=== PATIENT | female | born 1990 | race Caucasian/White ===

== ENCOUNTER 2019-04-07 22:03 | Emergency (ER) | payer MEDICAID ==
[~2019-04-07] VITALS: Ht 127 cm; Wt 133.4 kg
[2019-04-07 22:07] VITALS: BP_SYST 142
--- NOTE | 2019-04-07 22:10 | NUR ---
Patient triaged and placed in waiting room. VSS and patient appears in no acute distress at this time. Accompanied by sister, awaiting available bed, and MD notified of need for MSE.
--- NOTE | 2019-04-08 00:15 | NUR ---
Patient to ER bed 2 to gown for evaluation. Side rails up.
--- NOTE | 2019-04-08 00:25 | NUR ---
Pt presents to ER with mother with c/o abdominal pain, nausea, vomiting, and intermittent fevers. Pt states she got an appendectomy 03/30/2019 at [facility]. Pt states immediately after surgery, she was in pain and vomiting. Pt states she stayed in hospital until 04/05/2019. Pt states pain is still present and "can not keep anything down." Pt states pain is 8/10 and pain is located in RUQ. Pt states sutures are not painful. Pt states "fevers are off and on." Will continue to monitor.
[2019-04-08] MEDS ORDERED: NACL 0.9% 1,000 ML IV ONE (00:49)
--- NOTE | 2019-04-08 00:50 | NUR ---
# 20 gauge angiocath placed to L AC. Use of asceptic technique. Opsite placed over site. Blood return noted. Blood for lab drawn from site. Flushed with 10 cc of normal saline. No evidence of infiltration noted. Patient tolerated well.
[2019-04-08] MEDS ORDERED: ONDANSETRON HCL 4 MG/2 ML VIAL IVP ONE ×2 (01:00→03:30)
[2019-04-08] MEDS ORDERED: KETOROLAC TROMETHAMINE 30 MG VIAL IVP ONE (01:00)
--- NOTE | 2019-04-08 01:15 | NUR ---
Pt medicated per MD orders. Pt tolerated well. Will continue to monitor.
[2019-04-08 01:17] LABS: WHITE BLOOD COUNT (AUTO) 13.9 K/uL (4.8-10.8)
[2019-04-08 01:18] LABS: BASOPHILS # (AUTO) 0.1 K/uL (0.0-0.2); BASOPHILS % (AUTO) 0.5 % (0.0-2.0); EOSINOPHILS # (AUTO) 0.2 K/uL (0.0-0.4); EOSINOPHILS % (AUTO) 1.6 % (0.0-4.0); HEMATOCRIT 34.3 % (36-48); HEMOGLOBIN 11.4 g/dL (12.0-16.0); LYMPHOCYTES # (AUTO) 2.2 K/uL (1.0-5.5); LYMPHOCYTES % (AUTO) 15.5 % (20.5-51.5); MEAN CORPUSCULAR HEMOGLOBIN 28 pg (27-31); MEAN CORPUSCULAR HGB CONC 33 % (32-36); MEAN CORPUSCULAR VOLUME 84 fL (79.0-98.0); MONOCYTES # (AUTO) 1.5 K/uL (0.0-1.0); MONOCYTES % (AUTO) 10.5 % (1.7-9.3); NEUTROPHILS % (AUTO) 71.9 % (40.0-70.0); PLATELET COUNT (AUTO) 420 K/uL (130-430); RED BLOOD CELL COUNT(AUTO) 4.11 MIL/uL (4.2-6.2); RED CELL DISTRIBUTION WIDTH 14.4 % (9.0-15.0)
[2019-04-08 01:31] LABS: ALBUMIN 2.9 g/dL (3.4-4.8); CALCIUM 9.1 mg/dL (8.4-11.0); CREATININE 0.71 mg/dL (0.55-1.30); POTASSIUM 3.6 mmol/L (3.5-5.1); TOTAL BILIRUBIN 0.4 mg/dL (0.0-1.0)
--- NOTE | 2019-04-08 03:00 | NUR ---
ER Dr. Martinez at bedside explaining results to patient.
--- NOTE | 2019-04-08 03:02 | NUR ---
Pt states 10/10 abdomonial pain. aware. Orders received. Will continue to monitor.
[2019-04-08] MEDS ORDERED: fentaNYL CITRATE/PF 100 MCG/2 ML AMP IVP ONE (03:15)
--- NOTE | 2019-04-08 03:23 | NUR ---
Pt medicated per MD orders. Will continue to monitor.
[2019-04-08 03:40] VITALS: BP_SYST 140
--- NOTE | 2019-04-08 03:40 | NUR ---
Patient given written and verbal discharge instructions and verbalizes understanding. ER MD Martinez discussed with patient the results and treatment provided. Patient in stable condition. ID arm band removed. IV catheter removed intact and dressing applied, no active bleeding. Rx of zofran and norco given. Patient educated on pain management and to follow up with PMD. Pain Scale 2/10. Opportunity for questions provided and answered. Medication side effect fact sheet provided.
== END 2019-04-08 03:40 | disposition home or self-care (01) ==
LOC: SED 22:03
DX: G89.18 Other acute postprocedural pain (principal); R11.2 Nausea with vomiting, unspecified; Z90.89 Acquired absence of other organs
CPT/HCPCS: 36415; 76700; 80053; 82962; 83690; 85025; 96361; 96374; 96375; 96376; 99284; J1885; J2405; J3010; J7030